=== PATIENT | female | born 1965 | race Caucasian/White ===

== ENCOUNTER 2019-10-29 10:11 | Day surgery (SDC) | payer OTHER ==
[~2019-10-29] VITALS: Ht 170.2 cm; Wt 122.5 kg
[2019-10-29] MEDS ORDERED: fentaNYL 0.05 MG/ML VIAL ONE (11:56)
[2019-10-29] MEDS ORDERED: MIDAZOLAM 2 MG/2 ML VIAL ONE (11:56)
[2019-10-29] MEDS ORDERED: LIDOCAINE 2% 100 MG/5 ML UJET TP ONE (11:57)
[2019-10-29] MEDS ORDERED: MIDAZOLAM 2 MG/2 ML VIAL IVP ONE (12:20)
[2019-10-29] MEDS ORDERED: fentaNYL 0.05 MG/ML VIAL IVP ONE (12:22)
== END 2019-10-29 13:45 | disposition home or self-care (01) ==
LOC: MDS 10:11 → MMU 10:15 → MDS 13:45
PROVIDERS: ATTEND Internal Medicine Gastroenterology
DX: Z12.11 Encounter for screening for malignant neoplasm of colon (principal); D12.0 Benign neoplasm of cecum; K57.30 Diverticulosis of large intestine without perforation or abscess without bleeding; K21.0 Gastro-esophageal reflux disease with esophagitis; K44.9 Diaphragmatic hernia without obstruction or gangrene; J45.909 Unspecified asthma, uncomplicated; I10 Essential (primary) hypertension; E66.01 Morbid (severe) obesity due to excess calories; Z68.41 Body mass index [BMI] 40.0-44.9, adult; Z88.8 Allergy status to other drugs, medicaments and biological substances; Z98.890 Other specified postprocedural states; Z87.891 Personal history of nicotine dependence; Z79.899 Other long term (current) drug therapy
CPT/HCPCS: 43239; 45380; 45385; 88305; J2250; J3010